=== PATIENT | male | born 1940 | race Caucasian/White ===

== ENCOUNTER 2025-03-02 11:06 | Outpatient (CLI) | payer MEDICARE, SELFPAY ==
--- NOTE | 2025-03-02 11:00 | RT.EKG_ITS ---
APPROVED REPORT Exam: Resting ECG Reason for Exam: bradycardia, second degree AV block Patient Location: O HR:78 bpm ECG Measurements Heart Rate 78 AXIS NV 175 P -76 QRSd 89 QRS -1 QT 388 T 198 QTc 442 Conclusion Mobitz 1 second-degree AV block ([place]) Early transition
== END 2025-03-02 11:07 | disposition home or self-care (01) ==
LOC: DI.CARD 11:07
PROVIDERS: PCP Family Medicine; Visit Provider Internal Medicine Cardiovascular Disease
DX: R00.1 Bradycardia, unspecified (principal); I44.1 Atrioventricular block, second degree
CPT/HCPCS: 93010

== ENCOUNTER → 2025-03-02 11:07 | Outpatient (BNVA) | payer MEDICARE, SELFPAY | PROVIDERS: PCP Family Medicine; Referring Provider Family Medicine; Visit Provider Internal Medicine Cardiovascular Disease | DX: I44.1 Atrioventricular block, second degree (principal); R00.1 Bradycardia, unspecified | CPT/HCPCS: 99203; 93005 ==